=== PATIENT | female | born 1940 | race Caucasian/White ===

== ENCOUNTER 2022-10-05 18:23 | Emergency (ER) | payer MEDICARE, OTHER ==
[~2022-10-05] VITALS: Ht 167.6 cm; Wt 59.1 kg
[~2022-10-05 18:23] MED LIST: ASPI-1265 PO; BETA1TAB5; CALC600T49; COLE1TAB2; FISH1CAP15 PO; LOP25T PO; MELO-83 PO; OMEP-84 PO; [UNRECOGNIZED DRUG - OTHER]
[2022-10-05] MEDS ORDERED: furosemide 40mg/4ml inj IV ONE (18:50)
[2022-10-05] MEDS ORDERED: furosemide 10 MG/1 ML 10ml inj IV ONE (18:50)
[2022-10-05] MEDS ORDERED: normal saline 1000ML IV soln IVB ONE (19:00)
--- NOTE | 2022-10-05 19:18 | NUR ---
AWARE OF HYPOTENSION
[2022-10-05 19:23] LABS: BASOPHILS # (AUTO) 0.1 X10'3 (0-0.2); BASOPHILS % (AUTO) 0.7 % (0-1); EOSINOPHILS # (AUTO) 0.1 X10'3 (0-0.9); EOSINOPHILS % (AUTO) 1.5 % (0-6); HEMATOCRIT 36.9 % (35.0-45.0); HEMOGLOBIN 12.1 g/dl (12.0-16.0); LYMPHOCYTES % (AUTO) 9.3 % (21-51); MEAN CORPUSCULAR HGB CONC 32.8 g/dL (33.0-36.5); MEAN CORPUSCULAR VOLUME 88.4 FL (78-98); MEAN PLATELET VOLUME 11.2 FL (7.4-10.4); MONOCYTES # (AUTO) 1.2 X10'3 (0-0.9); MONOCYTES % (AUTO) 11.4 % (2-12); NEUTROPHILS # (AUTO) 7.9 X10'3 (1.8-7.7); NEUTROPHILS % (AUTO) 77.1 % (42-75); PLATELET COUNT 125 X10'3 (140-440); RED BLOOD COUNT 4.17 X10'6 (4.20-5.60); RED CELL DISTRIBUTION WIDTH 20.1 % (11.5-14.5); WHITE BLOOD COUNT 10.3 X10'3 (4.5-11.0)
[2022-10-05 19:47] LABS: ALANINE AMINOTRANSFERASE 44 U/L (12-78); ALBUMIN 3.2 G/DL (3.4-5.0); ALBUMIN/GLOBULIN RATIO 1.1 (1.1-1.5); ALKALINE PHOSPHATASE 137 IU/L (46-116); ANION GAP 8 (8-16); ASPARTATE AMINO TRANSFERASE 48 U/L (10-37); BILIRUBIN,TOTAL 1.6 MG/DL (0.1-1.0); BLOOD UREA NITROGEN 39 MG/DL (7-18); BUN/CREATININE RATIO 23.4 (6.6-38.0); CALCIUM 8.4 MG/DL (8.5-10.1); CHLORIDE 102 MMOL/L (99-107); CREATININE 1.67 MG/DL (0.40-0.90); GLUCOSE 75 MG/DL (70-104); POTASSIUM 3.5 MMOL/L (3.5-5.1); SODIUM 138 MMOL/L (135-145); TOTAL CARBON DIOXIDE 28.5 MMOL/L (24-32); TOTAL PROTEIN 6.1 G/DL (6.4-8.2); eGFR 29 ML/MIN
[2022-10-05 20:07] LABS: PLATELET ESTIMATE DECREASED; TOTAL CELLS COUNTED 100
[2022-10-05 20:08] LABS: GIANT PLATELET FEW; HYPERSEGMENTED NEUTROPHILS FEW; LARGE PLATELETS FEW; SMUDGE CELLS 1+
[2022-10-05 20:09] LABS: ELLIPTOCYTES FEW; SCHISTOCYTES FEW; TEAR DROP CELLS FEW
[2022-10-05 20:10] LABS: ACANTHOCYTES 1+; BURR CELLS 1+; POIKILOCYTOSIS FEW
[2022-10-05 20:11] LABS: ANISOCYTOSIS 3+
[2022-10-05 20:26] LABS: APTT 29 SECONDS (22-32)
[2022-10-05 21:41] LABS: CLARITY,URINE CLEAR (Clear); COLOR,URINE YELLOW (Yellow); GLUCOSE, URINE NEGATIVE (Neg); KETONES,URINE NEGATIVE (Neg); LEUKOCYTE ESTERASE ,URINE NEGATIVE (Neg); NITRITES, URINE NEGATIVE (Neg); OCCULT BLOOD,URINE NEGATIVE (Neg); PROTEIN,URINE NEGATIVE (Neg); UROBILINOGEN,URINE 0.2 E.U/dL (0.2-1.0)
[2022-10-05 21:46] LABS: UA COLLECTION TYPE STRAIGHT CATH
[2022-10-05] MEDS ORDERED: AMIO100T4 PO (22:09)
[2022-10-05 23:00] VITALS: BP 92/55
== END 2022-10-05 23:19 | disposition home or self-care (01) ==
LOC: ER 18:24 → UNDOADMIN 22:13 → ED HOLD 22:13 → ER 23:19
DX: I95.9 Hypotension, unspecified (principal); M25.561 Pain in right knee; K21.9 Gastro-esophageal reflux disease without esophagitis; F32.A Depression, unspecified; Z87.01 Personal history of pneumonia (recurrent); Z88.1 Allergy status to other antibiotic agents; Z88.8 Allergy status to other drugs, medicaments and biological substances; Z79.82 Long term (current) use of aspirin; Z79.899 Other long term (current) drug therapy; W19.XXXA Unspecified fall, initial encounter; Y93.89 Activity, other specified; Y92.89 Other specified places as the place of occurrence of the external cause; Y99.8 Other external cause status
CPT/HCPCS: 36415; 71045; 72170; 73560; 80053; 81003; 83880; 85007; 85025; 85610; 85730; 93005; 99285; J7030; J7040